=== PATIENT | male | born 1995 | race Caucasian/White ===

== ENCOUNTER 2022-02-08 22:45 | Emergency (ER) | payer BC ==
[~2022-02-08] VITALS: Ht 172.7 cm; Wt 77.1 kg
[2022-02-08 22:55] VITALS: BP 150/80
--- NOTE | 2022-02-08 22:59 | NUR ---
TO LOBBY A/W BED AMBULATORY
[2022-02-09 01:32] VITALS: BP 150/80
--- NOTE | 2022-02-09 01:32 | NUR ---
Patient discharged with v/s stable. Written and verbal after care instructions given and explained. Patient verbalized understanding. Ambulatory with steady gait. All questions addressed prior to discharge. Advised to follow up with PMD.
== END 2022-02-09 01:32 | disposition home or self-care (01) ==
LOC: MED 22:45
DX: R41.0 Disorientation, unspecified (principal)
CPT/HCPCS: 99281